=== PATIENT | female | born 1935 | race Caucasian/White ===

== ENCOUNTER 2018-01-24 13:01 | Day surgery (SDC) | payer MEDICARE, OTHER ==
[~2018-01-24] VITALS: Ht 167.6 cm; Wt 76.5 kg
[~2018-01-24 13:01] MED LIST: ASPI325T17 PO; BISO1TAB10 PO; CLOP75TA52 PO; CYAN1TAB29 PO; FERR-46 PO; LEVO50TA5 PO; ROSU10TA PO
[2018-01-24 14:02] VITALS: BP 153/66
[2018-01-24] MEDS ORDERED: NALOXONE 1 MG/ML, 2ML ONE (14:54)
[2018-01-24] MEDS ORDERED: MIDAZOLAM 1 MG/ML, 5ML ONE (14:54)
[2018-01-24] MEDS ORDERED: NITROGLYCERIN 5 MG/ML, 10ML ONE (14:54)
[2018-01-24] MEDS ORDERED: HEPARIN 1,000 UNITS/ML, 10ML ONE (14:54)
[2018-01-24] MEDS ORDERED: FLUMAZENIL 0.1 MG/1 ML, 5ML ONE (14:54)
[2018-01-24] MEDS ORDERED: FENTANYL PF 100 MCG/2ML ONE (14:54)
[2018-01-24] MEDS ORDERED: PROTAMINE SULFATE 10 MG/ML, 25ML ONE (14:55)
[2018-01-24] MEDS ORDERED: VISIPAQUE 270 MG/ML, 50ML BOTTLE ONE (17:38)
[2018-01-24] MEDS ORDERED: hydrALAzine 20 MG/ML, 1ML ONE (17:46)
[2018-01-24] MEDS ORDERED: ACETAMINOPHEN 325 MG TABLET PO PRN (20:00)
[2018-01-24] MEDS ORDERED: hydrALAzine 20 MG/ML, 1ML IV PRN (20:00)
[2018-01-24] MEDS ORDERED: HYDROcodone/APAP 5/325 TABLET PO PRN (20:00)
== END 2018-01-24 22:15 | disposition home or self-care (01) ==
LOC: OUT 13:01 → 4NOR 18:15 → OUT 22:15
PROVIDERS: ATTEND Surgery
DX: I70.222 Atherosclerosis of native arteries of extremities with rest pain, left leg (principal); J43.9 Emphysema, unspecified; D64.9 Anemia, unspecified; E78.00 Pure hypercholesterolemia, unspecified; I10 Essential (primary) hypertension; E03.9 Hypothyroidism, unspecified; Z98.890 Other specified postprocedural states; Z86.718 Personal history of other venous thrombosis and embolism; Z90.49 Acquired absence of other specified parts of digestive tract; Z90.710 Acquired absence of both cervix and uterus; Z79.82 Long term (current) use of aspirin
CPT/HCPCS: 36246; 37225; 75630; 99156; 99157; C1714; C1725; C1751; C1760; C1769; C1884; C1894; G0378; J0360; J1644; J2250; J2310; J2720; J3010; Q9966

== ENCOUNTER → 2018-08-27 | Outpatient (CLI) | payer MEDICARE, OTHER ==
[~2018-08-27] MED LIST changes: +LEVO150T5 PO; +POTA99TA2 PO
[2018-08-27 11:26] LABS: BASOPHILS # (AUTO) 0.05 x10^3/uL (0-0.1); BASOPHILS % (AUTO) 1 % (0-1); EOSINOPHILS # (AUTO) 0.33 x10^3/uL (0-0.4); EOSINOPHILS % (AUTO) 4 % (1-7); LYMPHOCYTES # (AUTO) 1.33 x10^3/uL (1-3.4); LYMPHOCYTES % (AUTO) 14 % (22-44); MD NO; MEAN CORPUSCULAR HEMOGLOBIN 29.2 pg (27.0-34.8); MEAN CORPUSCULAR HGB CONC 33.2 g/dL (32.4-35.8); MEAN CORPUSCULAR VOLUME 88.1 fL (80-100); MONOCYTES # (AUTO) 0.77 x10^3/uL (0.2-0.8); MONOCYTES % (AUTO) 8 % (2-9); NEUTROPHILS # (AUTO) 6.79 x10^3/uL (1.8-6.8); NEUTROPHILS % (AUTO) 73 % (42-75); PLATELET COUNT 374 x10^3/uL (130-400); RED BLOOD COUNT 5.41 x10^6/uL (3.82-5.3)
[2018-08-27 11:40] LABS: ALANINE AMINOTRANSFERASE 57 U/L (12-78); ALBUMIN 4.3 g/dL (3.4-5.0); ANION GAP 7 mmol/L (5-15); CALCIUM 9.7 mg/dL (8.5-10.1); CHLORIDE 105 mmol/L (98-107); CREATININE 1.21 mg/dL (0.55-1.02)
[2018-08-27 11:42] LABS: ALKALINE PHOSPHATASE 124 U/L (45-117); BILIRUBIN,TOTAL 0.5 mg/dL (0.2-1.0)
== END | disposition home or self-care (01) ==
LOC: STAR 10:07
PROVIDERS: ATTEND Surgery
DX: Z01.818 Encounter for other preprocedural examination (principal); I70.0 Atherosclerosis of aorta; I11.9 Hypertensive heart disease without heart failure; I44.4 Left anterior fascicular block; M47.899 Other spondylosis, site unspecified; M19.012 Primary osteoarthritis, left shoulder; M19.011 Primary osteoarthritis, right shoulder
CPT/HCPCS: 36415; 71046; 80053; 85025; 93005